=== PATIENT | female | born 2000 | race Caucasian/White ===

== ENCOUNTER 2024-01-12 12:11 | Emergency (ER) | payer MEDICAID ==
[~2024-01-12] VITALS: Ht 170.2 cm; Wt 66.0 kg
[2024-01-12] MEDS: LORAZEPAM 2MG/ML INJ IM STA (12:30)
[2024-01-12] MEDS: DIPHENHYDRAMINE 50MG/ML VIAL IM STA (12:30)
[2024-01-12] MEDS: HALOPERIDOL LACTATE 5MG/ML VIAL IM STA (12:31)
[2024-01-12 12:54] LABS: BASOPHILS % 0.6 % (0.0-2.0); EOSINOPHILS % 0.3 % (0.0-5.0); HEMATOCRIT. 39.6 % (36.0-48.0); HEMOGLOBIN. 13.6 g/dL (12.0-16.0); MEAN CORPUSCULAR HGB CONC 34.3 g/dL (31.0-37.0); MEAN CORPUSCULAR VOLUME 87.4 fL (81.0-99.0); MEAN PLATELET VOLUME 8.4 fl (7.4-10.4); MONOCYTES % 6.7 % (2.0-8.0); NEUTROPHILS % 71.4 % (40.0-76.0); PLATELET 273 x1000/uL (130-400); RED BLOOD CELL COUNT 4.53 mill/uL (4.2-5.4); RED CELL DISTRIBUTION WIDTH 14.7 % (11.6-14.6); WHITE BLOOD COUNT 9.7 x1000/uL (4.5-11.0)
[2024-01-12 13:03] LABS: CHLORIDE 107 mEq/L (98-107); POTASSIUM 3.3 mEq/L (3.5-5.1); SODIUM 140 mEq/L (136-145)
[2024-01-12 13:04] LABS: CARBON DIOXIDE 21 mEq/L (21-32)
[2024-01-12 13:05] LABS: CALCIUM 9.7 mg/dL (8.7-10.4)
[2024-01-12 13:09] LABS: CREATININE 0.7 mg/dL (0.6-1.0); GLUCOSE 102 mg/dL (70-105)
[2024-01-12 13:10] LABS: ETHANOL BLOOD 248 mg/dL (<10)
[2024-01-12 13:11] LABS: ACETAMINOPHEN < 2 ug/mL (10-30)
[2024-01-12 13:12] LABS: UREA NITROGEN BLOOD < 5 mg/dL (9-23)
[2024-01-12] MEDS ORDERED: POTASSIUM CHLORIDE 20MEQ/PACKET PO ONE (13:30)
[2024-01-12 13:35] LABS: ALANINE AMINOTRANSFERASE 12 IU/L (10-49); ALBUMIN 4.5 g/dL (3.2-4.8); ASPARTATE AMINOTRANSFERASE 25 IU/L (<34); BILIRUBIN TOTAL 0.3 mg/dL (0.1-1.0)
[2024-01-12 13:39] LABS: BILIRUBIN DIRECT < 0.1 mg/dL (<=3.0)
[2024-01-12 13:45] VITALS: TEMP 98.5; O2SAT 100
[2024-01-12 13:59] LABS: HCG SCREEN NEGATIVE
[2024-01-12 16:24] LABS: CLARITY URINE CLEAR (CLEAR); COLOR URINE YELLOW (YELLOW); GLUCOSE URINE NEGATIVE (NEGATIVE); KETONES URINE NEGATIVE (NEGATIVE); LEUKOCYTE ESTERASE URINE TRACE (NEGATIVE); NITRITE URINE NEGATIVE (NEGATIVE); OCCULT BLOOD URINE TRACE (NEGATIVE); PROTEIN URINE NEGATIVE (NEGATIVE); SPECIFIC GRAVITY URINE 1.005 (1.005-1.030); UROBILINOGEN URINE 0.2 E.U./dL (0.2-1.0)
[2024-01-12 16:44] LABS: *AMPHETAMINES SCREEN URINE PRESUMPTIVE POSITIVE (NEGATIVE); *BARBITURATES SCREEN URINE NEGATIVE (NEGATIVE); *BENZODIAZEPINES SCREEN URINE NEGATIVE (NEGATIVE); *COCAINE SCREEN URINE NEGATIVE (NEGATIVE)
[2024-01-12 16:45] LABS: CANNABINOID URINE SCREEN PRESUMPTIVE POSITIVE (NEGATIVE); ECSTASY MDMA SCREEN URINE NEGATIVE (NEGATIVE); METHADONE URINE SCREEN NEGATIVE (NEGATIVE); OPIATES URINE SCREEN NEGATIVE (NEGATIVE); PHENCYCLIDINE URINE SCREEN NEGATIVE (NEGATIVE)
[2024-01-12 17:09] LABS: BACTERIA URINE TRACE; RBC URINE 0-2 /hpf (0-2); SQUAMOUS EPITHELIAL CELL URINE FEW /lpf (RARE/1+)
[2024-01-12 17:10] LABS: WBC URINE 0-2 /hpf (0-2)
[2024-01-12 17:15] VITALS: BP 133/87; PULSE 85; RESP 16; O2SAT 100
== END 2024-01-12 18:34 | disposition left against medical advice (07) ==
LOC: ER 12:24
DX: F10.129 Alcohol abuse with intoxication, unspecified (principal); E87.6 Hypokalemia; F19.90 Other psychoactive substance use, unspecified, uncomplicated; Y90.8 Blood alcohol level of 240 mg/100 ml or more
CPT/HCPCS: 80076; 80305; 80048; 81003; 81025; 80307; 80329; 80320; 84703; 84443; 85025; 36415; 93005; 96372; 99291; J1200; J1630; J2060; Z7610; G0480